=== PATIENT | male | born 2005 ===

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

== ENCOUNTER 2023-08-21 21:37 | Emergency (ER) | payer SELFPAY ==
[2023-08-21] MEDS: Sodium Chloride 0.9% 1,000 ML IV ONE (21:50)
[2023-08-21] MEDS: Ondansetron 4 MG/2 ML SDV IVPUSH ONE (21:50)
[2023-08-21 22:05] LABS: BASOPHILS ABSOLUTE AUTO 0.05 K/uL (0.00-0.30); BASOPHILS PERCENT AUTO 0.3 % (0.0-1.0); EOSINOPHILS ABSOLUTE AUTO 0.03 K/uL (0.00-0.70); EOSINOPHILS PERCENT AUTO 0.2 % (0.0-5.0); HEMATOCRIT 49.5 % (42.0-52.0); HEMOGLOBIN 18.2 g/dL (14.0-18.0); IMMATURE GRAN ABSOLUTE AUTO 0.07 K/uL (0.00-0.05); IMMATURE GRAN PERCENT AUTO 0.5 % (0.0-0.4); LYMPHOCYTES ABSOLUTE AUTO 1.34 K/uL (2.00-8.80); LYMPHOCYTES PERCENT AUTO 9.2 % (50.0-65.0); MEAN CORPUSCULAR HEMOGLOBIN 31.3 pg (28.0-32.0); MEAN CORPUSCULAR HGB CONC 36.8 g/dL (32.0-36.0); MEAN CORPUSCULAR VOLUME 85.1 fL (83.0-99.0); MEAN PLATELET VOLUME 10.1 fL (9.4-12.4); MONOCYTES ABSOLUTE AUTO 1.22 K/uL (0.10-1.40); MONOCYTES PERCENT AUTO 8.4 % (2.0-10.0); NEUTROPHILS ABSOLUTE AUTO 11.79 K/uL (1.50-8.50); NEUTROPHILS PERCENT AUTO 81.4 % (35.0-45.0); PLATELET COUNT,PLT 248 K/uL (150-400); RED BLOOD CELL COUNT 5.82 M/uL (4.52-5.90)
[2023-08-21] MEDS: Famotidine 20 MG/2 ML SDV IVPUSH ONE (22:06)
[2023-08-21 22:31] LABS: A/G RATIO 1.3 (0.9-1.6); ALANINE AMINOTRANSFERASE,ALT 28 IU/L (14-63); ALBUMIN 4.5 g/dL (3.4-5.0); ALKALINE PHOSPHATASE 78 U/L (46-116); ASPARTATE AMNIOTRANSFERASE,AST 21 IU/L (15-37); BILIRUBIN TOTAL 0.7 mg/dL (0.2-1.0); BLOOD UREA NITROGEN,BUN 15 mg/dL (7.0-18.0); CALCIUM 9.9 mg/dL (8.5-10.1); CHLORIDE,CL 102 mmol/L (98-107); CREATININE 1.1 mg/dL (0.8-1.3); EST CRCL DRUG DOSING (CG) 97.47 mL/min; GLUCOSE RANDOM 136 mg/dL (74-106); POTASSIUM,K 3.3 mmol/L (3.5-5.1); PROTEIN TOTAL,TP 7.9 g/dL (6.4-8.2); SODIUM,NA 139 mmol/L (136-148)
[2023-08-21 22:32] LABS: ESTIMATED GFR 99 mL/min (>60); ETHANOL BLOOD MEDICAL < 3.0 mg/dL; LIPASE 334 U/L (16-77)
[2023-08-21] MEDS: Ondansetron 4 MG Tab.DIS PO ONE (22:34)
[2023-08-21 23:02] VITALS: BP 139/70; PULSE 95
== END 2023-08-21 22:36 | disposition home or self-care (01) ==
LOC: MW.ED 21:37
DX: R11.2 Nausea with vomiting, unspecified (principal); Z88.0 Allergy status to penicillin; Z79.899 Other long term (current) drug therapy; Z75.8 Other problems related to medical facilities and other health care
CPT/HCPCS: 36415; 80053; 80307; 83690; 85025; 96361; 96374; 96375; 99284; A9270; J2405; J3490; J7030